=== PATIENT | female | born 1985 | race Caucasian/White ===

== ENCOUNTER 2020-08-22 02:48 | Inpatient (IN) | payer OTHER, SELFPAY ==
[2020-08-22] MEDS ORDERED: LACTATED RINGERS 1,000 ML ONE (03:46)
[2020-08-22] MEDS ORDERED: MINERAL OIL 30 ML ORAL LIQD PO PRN (04:16)
[2020-08-22] MEDS ORDERED: LIDOCAINE (2%) 20 MG/1 ML VIAL 20 ML MDV INFILTRATI ONE (04:16)
[2020-08-22] MEDS ORDERED: BUTORPHANOL 2 MG/1 ML INJ IV PRN ×2 (04:16)
[2020-08-22] MEDS ORDERED: ePHEDrine SULFATE 50 MG/1 ML INJ IV PRN (04:16)
[2020-08-22] MEDS ORDERED: TERBUTALINE 1 MG/1 ML INJ SUB-Q PRN (04:16)
[2020-08-22] MEDS ORDERED: OXYTOCIN 20 UNIT/1000ML DRIP 20,000 MILLIUNITS/1,000 ML BAG IV ONE (04:16)
[2020-08-22] MEDS ORDERED: fentaNYL 100 MCG/2 ML INJ IV PRN (04:16)
[2020-08-22] MEDS ORDERED: ONDANSETRON 4 MG/2 ML INJ IV PRN ×2 (04:16→05:05)
--- NOTE | 2020-08-22 04:21 | History and Physical Report ---
History of Present Illness Date of examination: 08/22/20 Date of admission: 08/22/20 03:56 Chief complaint: active labor History of present illness: 35yo at weeks, active labor (7-8cm in OB triage) active labor Past History - Obstetrical History Expected Date of Delivery: 09/01/20 Actual Gestation: 38 Week(s) 4 Day(s) : 5 Medications and Allergies Allergies Allergy/AdvReac Type Severity Reaction Status Date / Time No Known Allergies Allergy Verified 02/04/14 04:15 Home Medications Medication Instructions Recorded Confirmed Last Taken Type Vit-Fe Fumar-FA [ 1 each PO QDAY 08/11/13 08/22/20 08/21/20 History Vitamin] Ferrous Sulfate [Feosol 325 MG tab] 325 mg PO BID 30 Days #30 tablet 03/26/19 08/22/20 08/21/20 Rx - Vital Signs Vital signs: Vital Signs Pulse BP 118 H 122/71 08/22/20 03:16 08/22/20 03:16 Temp Pulse Resp BP Pulse Ox 98.8 F 107 H 18 115/78 98 08/22/20 03:36 08/22/20 04:17 08/22/20 03:36 08/22/20 03:36 08/22/20 04:17 - Physical Exam Cardiovascular: Regular rate Lungs: Positive: Clear to auscultation Abdomen: Positive: normal appearance, normal bowel sounds Genitourinary (Female): Positive: normal external genitalia, normal perenium Vagina: Positive: normal moisture Anus/Rectum: Positive: normal perianal skin Extremities: Positive: normal Deep Tendon Reflex Grade: Normal +2 - Obstetrical FHR: category 1 Cervical Dilatation: 7 Results All other labs normal. Assessment and Plan active labor GBS negative Plan: CFM expect maternal/ well being reassuring overall Edwin El MD
[2020-08-22] MEDS ORDERED: LACTATED RINGERS 1,000 ML IV SCH (05:00)
[2020-08-22] MEDS ORDERED: OXYTOCIN DRIP 30 UNITS/500 ML BAG IV SCH (05:00)
[2020-08-22] MEDS ORDERED: OXYTOCIN 20 UNIT/1000ML DRIP 20 UNITS/1,000 ML BAG IV SCH (05:00)
[2020-08-22] MEDS ORDERED: ACETAMINOPHEN 325 MG TAB PO PRN (05:05)
[2020-08-22] MEDS ORDERED: WITCH HAZEL/ GLYCERIN PAD TP PRN (05:05)
[2020-08-22] MEDS ORDERED: diphenhydrAMINE 25 MG CAP PO PRN (05:05)
[2020-08-22] MEDS ORDERED: PROMETHAZINE 25 MG TAB PO PRN (05:05)
[2020-08-22] MEDS ORDERED: PROMETHAZINE 25 MG RECT SUPP PR PRN (05:05)
[2020-08-22] MEDS ORDERED: LANOLIN/ZINC/DIMETHICONE (LANSINOH) 7 GM TP PRN (05:05)
[2020-08-22] MEDS ORDERED: MAGNESIUM HYDROXIDE (MOM) ORAL LIQD UDC PO PRN (05:05)
--- NOTE | 2020-08-22 05:11 | Procedure Note ---
OB Delivery Note - Delivery Date of Delivery: 08/22/20 Surgeon: ROSARIO MONTES DE OCA Estimated blood loss: 300cc - Vaginal Delivery position: OA Intrapartum events: none Delivery induction: none Delivery monitor: external FHT, external uterine Route of delivery: Delivery placenta: spontaneous Delivery cord: 3 umbilical vessels Episiotomy: none Delivery laceration: none Anesthesia: none Delivery comments: Patient pushed to deliver a viable femal over an intact perineum with [id number] and 8/9.. Position RADHA, tight nuchal cord reduced after delivery. Spontaneous cry at delivery. Delivery of the anterior shoulder atraumatic, remainder of delivery uncomplicated. Cord clamped cut and baby handed to waiting TONY team. Spontaneous delivery of an intact placenta with three-vessel cord. Inspection of the perineum cervix and vagina revealed no lacerations. Firm fundus, EBL 300ml. All sponge needle and instrument counts correct x2. Mom and baby stable to . Edwin Montes De Oca MD - A at 1 minute: 8 at 5 minutes: 9 Infant Gender: Female (wet 3241gms)
[2020-08-22] MEDS: HYDROcodone/ACETAMINOPHEN 5-325 MG TAB PO PRN ×2 (05:40→22:07)
[2020-08-22 05:56] LABS: Hematocrit 35.4 % (30.3-42.9); Hemoglobin 12.7 gm/dl (10.1-14.3)
[2020-08-22] MEDS: IBUPROFEN 600 MG TAB PO SCH (16:55)
[2020-08-22 19:20] LABS: Hemoglobin 11.5 gm/dl (10.1-14.3)
[2020-08-23] MEDS: IBUPROFEN 600 MG TAB PO SCH ×3 (00:25→11:07)
--- NOTE | 2020-08-23 12:17 | Progress Note ---
Assessment and Plan A: PP Day #1 Stable P: Follow Routine Orders D/C home today per patient request RTO in 6 Weeks Subjective - Subjective Date of service: 08/23/20 Patient reports: appetite normal, voiding normally, pain well controlled, flat us, ambulating normally : doing well, bottle feeding Objective - Vital Signs Latest vital signs: Vital Signs Temp Pulse Resp BP BP Pulse Ox 08/23/20 11:07 20 08/23/20 07:44 97.5 F L 18 89/53 08/23/20 05:55 18 08/23/20 01:40 98.3 F 82 18 118/74 97 08/22/20 22:07 18 08/22/20 15:42 97.7 F 88 18 90/53 99 08/22/20 12:51 97.7 F 76 18 90/48 99 Intake and Output 08/22/20 08/23/20 08/23/20 22:59 06:59 14:59 Intake Total 120 240 Balance 120 240 Intake: Oral 120 240 Other: Total, Intake Amount 120 120 # Voids Void 1 1 - Exam Breasts: Present: normal Cardiovascular: Present: Regular rate Lungs: Present: Clear to auscultation, Normal air movement Abdomen: Present: normal appearance, soft, normal bowel sounds Uterus: Present: normal, firm, fundal height below umbilicus Extremities: Present: normal
--- NOTE | 2020-08-23 12:18 | Discharge Summary ---
Providers - Providers Date of Admission: 08/22/20 03:56 Date of discharge: 08/23/20 Attending physician: ROSARIO MONTES DE OCA MD Primary care physician: ROSARIO MONTES DE OCA MD Hospitalization Reason for admission: active labor Delivery: Episiotomy: none Laceration: none Other procedures: none complications: none Discharge diagnosis: IUP at term delivered baby: female Condition at discharge: Good Disposition: DC-01 TO HOME OR SELFCARE Plan - Provider Discharge Summary Activity: routine, no sex for 6 weeks, no heavy lifting 4 weeks, no strenuous exercise Diet: routine Instructions: routine Additional instructions: [] Smoking cessation referral if applicable(refer to patient education folder for contact #) [] Refer to [facility] Booklet Call your doctor immediately for: * Fever > 100.5 * Heavy vaginal bleeding ( >1 pad per hour) * Severe persistent headache * Shortness of breath * Reddened, hot, painful area to leg or breast * Drainage or odor from incision. * Keep incision clean and dry at all times and follow doctor's instructions regarding bathing/showering - Follow up plan Follow up: ROSARIO MONTES DE OCA MD [Primary Care Provider] - 6 Weeks
[2020-08-23 15:59] VITALS: BP 101/69
== END 2020-08-23 15:27 | disposition home or self-care (01) | DRG 807 ==
LOC: TRG 02:48 → APU 02:49 → LD 03:56 → TRG 03:56 → OB 07:54
PROVIDERS: ADMIT Obstetrics & Gynecology; ATTEND Obstetrics & Gynecology
PROC: 10E0XZZ Delivery of Products of Conception, External Approach (ICD-10-PCS; principal; 2020-08-22)
DX: O69.1XX0 Labor and delivery complicated by cord around neck, with compression, not applicable or unspecified (principal); Z37.0 Single live birth; Z3A.38 38 weeks gestation of pregnancy; Z20.828 Contact with and (suspected) exposure to other viral communicable diseases
CPT/HCPCS: 36415; 85014; 85018; G0378; J2590; J7120; U0003-CS